=== PATIENT | male | born 1965 | race Caucasian/White ===

== ENCOUNTER → 2017-01-13 | Outpatient (REF) ==
[~2017-01-13] MED LIST: ASPI325T6 PO; PRIL40 PO; TYLENOL 325MG325 MG PO; ZANTAC 7575 MG PO
== END ==
LOC: ZLAB.WCH 08:51
DX: Z01.89 Encounter for other specified special examinations (principal)

== ENCOUNTER 2017-05-18 12:38 | Inpatient (IN) | payer SELFPAY ==
[~2017-05-18] VITALS: Ht 99.1 cm; Wt 98.3 kg
[2017-05-18 13:35] VITALS: BP 187/83; PULSE 104; TEMP 98.8
[2017-05-18] MEDS ORDERED: HERBAL SUPPLEMENT (13:40)
[2017-05-18 14:32] LABS: BASO # 0.1 (0.0-0.2); BASO % 0.7 % (0.0-2.0); EOS # 0.1 (0.0-0.7); EOS % 0.8 % (0-4.0); GRAN % 69.4 % (42.2-75.2); HEMATOCRIT 37.9 % (42.0-52.0); HEMOGLOBIN 12.1 g/dl (13.5-18.0); LYMPH # 1.7 (1.2-3.4); LYMPH % 19.4 % (20.0-51.0); MEAN CELL VOLUME 80 fl (80.0-100.0); MEAN CORPUSCULAR HEMOGLOBIN 26 pg (27.0-31.0); MEAN CORPUSCULAR HGB CONC 32 g/dl (33.0-37.0); MEAN PLATELET VOLUME 9.6 fl (7.4-10.4); MONO # 0.8 (0.1-0.6); MONO % 9.5 % (1.7-9.3); PLATELET COUNT 137 K/mm3 (130-400); RED BLOOD COUNT 4.73 M/mm3 (4.20-5.60); WHITE BLOOD COUNT 8.7 K/mm3 (4.8-10.8)
[2017-05-18 14:46] LABS: ADJUSTED CALCIUM 8.8 mg/dL (8.4-10.2); ALBUMIN 4.3 gm/dL (3.5-5.0); BILIRUBIN,TOTAL 0.8 mg/dL (0.0-1.0); CREATININE, serum 0.89 mg/dL (0.66-1.25); POTASSIUM 3.1 mmol/L (3.4-5.0); TOTAL PROTEIN 7.7 gm/dL (6.4-8.2)
[2017-05-18 16:18] LABS: COLLECTION METHOD CLEAN CATCH
[2017-05-18 16:29] LABS: PH 8 (5-8); SQUAMOUS EPITHELIAL None Seen /hpf; URINE APPEARANCE Clear; URINE BACTERIA None Seen /hpf; URINE BILIRUBIN Negative (NEGATIVE); URINE BLOOD Negative (NEGATIVE); URINE COLOR Yellow; URINE GLUCOSE 1+ (NEGATIVE); URINE KETONE Negative (NEGATIVE); URINE LEUKOCYTE ESTERASE Negative (NEGATIVE); URINE PROTEIN(semi-quant) Negative (NEGATIVE); URINE RBC 0-2 /hpf; URINE WBC 0-2 /hpf
[2017-05-18 17:26] VITALS: BP 172/92; PULSE 88; TEMP 98.2
[2017-05-18 17:28] VITALS: BP 172/92; PULSE 88; TEMP 98.2
[2017-05-18 17:44] LABS: MAGNESIUM 1.6 mg/dL (1.6-2.3)
[2017-05-18 18:33] LABS: TSH w REFLEX 2.2 uIU/mL (0.465-4.680)
[2017-05-18 22:35] VITALS: BP 225/119; PULSE 83; TEMP 97.5
[2017-05-19] VITALS (10 sets, daily range): BP systolic 128–192; BP diastolic 69–107; PULSE 70–86; TEMP 97.6–698.6
[2017-05-19 07:01] LABS: BASO % 0.6 % (0.0-2.0); EOS # 0.2 (0.0-0.7); EOS % 3.5 % (0-4.0); GRAN # 4.2 (1.4-6.5); GRAN % 60.4 % (42.2-75.2); LYMPH # 1.9 (1.2-3.4); LYMPH % 27.5 % (20.0-51.0); MEAN CELL VOLUME 81 fl (80.0-100.0); MEAN CORPUSCULAR HGB CONC 31 g/dl (33.0-37.0); MEAN PLATELET VOLUME 10.2 fl (7.4-10.4); MONO # 0.5 (0.1-0.6); MONO % 7.7 % (1.7-9.3); PLATELET COUNT 131 K/mm3 (130-400); RED BLOOD COUNT 4.38 M/mm3 (4.20-5.60); WHITE BLOOD COUNT 6.9 K/mm3 (4.8-10.8)
[2017-05-19 07:05] LABS: HEMATOCRIT 35.6 % (42.0-52.0); HEMOGLOBIN 11.1 g/dl (13.5-18.0); MEAN CORPUSCULAR HEMOGLOBIN 25 pg (27.0-31.0)
[2017-05-19 07:19] LABS: ALBUMIN 3.8 gm/dL (3.5-5.0); BILIRUBIN,TOTAL 1.1 mg/dL (0.0-1.0); CALCIUM 7.8 mg/dL (8.4-10.2); CREATININE, serum 0.77 mg/dL (0.66-1.25); POTASSIUM 3.3 mmol/L (3.4-5.0)
[2017-05-20 01:44] VITALS: BP 147/69; PULSE 102; TEMP 99.3
[2017-05-20 06:00] VITALS: BP 160/74; PULSE 83; TEMP 98.3
[2017-05-20 06:35] LABS: BASO % 0.7 % (0.0-2.0); EOS # 0.1 (0.0-0.7); EOS % 1.7 % (0-4.0); GRAN # 3.4 (1.4-6.5); GRAN % 58.8 % (42.2-75.2); LYMPH # 1.7 (1.2-3.4); LYMPH % 28.8 % (20.0-51.0); MEAN CELL VOLUME 80 fl (80.0-100.0); MEAN CORPUSCULAR HGB CONC 32 g/dl (33.0-37.0); MEAN PLATELET VOLUME 10.2 fl (7.4-10.4); MONO # 0.6 (0.1-0.6); MONO % 9.8 % (1.7-9.3); PLATELET COUNT 114 K/mm3 (130-400); RED BLOOD COUNT 4.45 M/mm3 (4.20-5.60); WHITE BLOOD COUNT 5.8 K/mm3 (4.8-10.8)
[2017-05-20 06:39] LABS: HEMATOCRIT 35.8 % (42.0-52.0); HEMOGLOBIN 11.3 g/dl (13.5-18.0); MEAN CORPUSCULAR HEMOGLOBIN 25 pg (27.0-31.0)
[2017-05-20 06:49] LABS: ADJUSTED CALCIUM 9.1 mg/dL (8.4-10.2); ALBUMIN 3.6 gm/dL (3.5-5.0); BILIRUBIN,TOTAL 0.8 mg/dL (0.0-1.0); CALCIUM 8.8 mg/dL (8.4-10.2); CHOLESTEROL RISK RATIO 2.8; CREATININE, serum 0.95 mg/dL (0.66-1.25); POTASSIUM 3.9 mmol/L (3.4-5.0); TOTAL PROTEIN 6.7 gm/dL (6.4-8.2)
[2017-05-20 09:03] VITALS: BP 180/91; PULSE 78; TEMP 99.3
[2017-05-20 09:04] VITALS: BP 180/79
[2017-05-20] MEDS ORDERED: NORCO 325 MG-7.1 TAB PO (10:53)
[2017-05-20] MEDS ORDERED: ASPIRIN E.C. 8181 MG PO (10:56)
[2017-05-20] MEDS ORDERED: LIPITOR 40MG TA40 MG PO (10:56)
[2017-05-20] MEDS ORDERED: TOPROL XL 50MG50 MG PO (11:40)
[2017-05-20] MEDS ORDERED: LIPITOR20 MG PO (11:47)
== END 2017-05-20 12:20 | disposition home or self-care (01) | DRG 419 ==
LOC: SURG 12:38
PROVIDERS: Physician Assistant; Surgery
PROC: 0FT44ZZ Resection of Gallbladder, Percutaneous Endoscopic Approach (ICD-10-PCS; principal; 2017-05-19 13:30)
DX: K80.12 Calculus of gallbladder with acute and chronic cholecystitis without obstruction (principal); E87.6 Hypokalemia; I10 Essential (primary) hypertension; I25.10 Atherosclerotic heart disease of native coronary artery without angina pectoris; Z95.5 Presence of coronary angioplasty implant and graft; F17.210 Nicotine dependence, cigarettes, uncomplicated; Z91.14 Patient's other noncompliance with medication regimen; R01.1 Cardiac murmur, unspecified
CPT/HCPCS: 99223; 99232-AI; A9284; J0360; J1170; J1956; J2405; J2704; J2765; J3010; J3480; J7042; J7120